=== PATIENT | female | born 1995 | race Caucasian/White ===

== ENCOUNTER 2018-01-07 17:55 | Emergency (ER) | payer MEDICAID ==
[~2018-01-07] VITALS: Ht 167.6 cm; Wt 125.0 kg
[~2018-01-07 17:55] MED LIST: EQUALINE PRENATAL; MOTRIN 600600 MG/TAB PO; PERCOCET 325 MG1 TA2 PO; PROCARDIA XL 3030 MG PO
[2018-01-07 18:02] VITALS: BP 121/59; PULSE 93; TEMP 98
[2018-01-07 19:00] LABS: COLLECTION METHOD CLEAN CATCH
[2018-01-07 19:08] LABS: MUCOUS Present /lpf; PH 5 (5-8); URINE APPEARANCE Hazy; URINE BACTERIA Rare /hpf; URINE BILIRUBIN Negative (NEGATIVE); URINE BLOOD 1+ (NEGATIVE); URINE COLOR Yellow; URINE GLUCOSE Negative (NEGATIVE); URINE KETONE Trace (NEGATIVE); URINE LEUKOCYTE ESTERASE Negative (NEGATIVE); URINE NITRATE Negative (NEGATIVE); URINE PROTEIN(semi-quant) Negative (NEGATIVE); URINE RBC 0-2 /hpf
== END 2018-01-07 19:51 | disposition home or self-care (01) ==
LOC: COL.ER 17:55
PROVIDERS: Nurse Practitioner
DX: R10.31 Right lower quadrant pain (principal); R10.11 Right upper quadrant pain; Z90.49 Acquired absence of other specified parts of digestive tract; Z98.890 Other specified postprocedural states

== ENCOUNTER 2018-04-14 21:34 | Outpatient (CLI) | payer MEDICAID ==
[~2018-04-14] VITALS: Ht 162.6 cm; Wt 131.4 kg
[2018-04-14 22:27] VITALS: BP 134/63; PULSE 85; TEMP 98.5
== END 2018-04-14 22:40 ==
LOC: LDRO 21:34
DX: O36.8130 Decreased fetal movements, third trimester, not applicable or unspecified (principal); Z3A.36 36 weeks gestation of pregnancy

== ENCOUNTER 2018-05-01 05:29 | Inpatient (IN) | payer MEDICAID ==
[~2018-05-01] VITALS: Ht 165.1 cm; Wt 132.3 kg
[2018-05-01] VITALS (19 sets, daily range): BP systolic 95–138; BP diastolic 55–79; PULSE 65–92; TEMP 97.5–98.5
[2018-05-01 06:28] LABS: BASO % 0.4 % (0.0-2.0); EOS # 0.1 (0.0-0.7); EOS % 0.7 % (0-4.0); GRAN # 7.4 (1.4-6.5); GRAN % 71.3 % (42.2-75.2); HEMOGLOBIN 11.9 g/dl (12.5-16.0); LYMPH % 19.2 % (20.0-51.0); MEAN CELL VOLUME 81 fl (80.0-100.0); MEAN CORPUSCULAR HEMOGLOBIN 26 pg (27.0-31.0); MEAN CORPUSCULAR HGB CONC 32 g/dl (33.0-37.0); MONO # 0.8 (0.1-0.6); MONO % 7.8 % (1.7-9.3); PLATELET COUNT 235 K/mm3 (130-400); RED BLOOD COUNT 4.57 M/mm3 (4.10-5.30); REDCELL DISTRIBUTION WIDTH-CV 15.3 % (11.5-14.5)
[2018-05-01 06:29] LABS: HEMATOCRIT 36.8 % (37.0-47.0)
[2018-05-01 09:21] LABS: HEMOGLOBIN 11.2 g/dl (12.5-16.0); MEAN CELL VOLUME 82 fl (80.0-100.0); MEAN CORPUSCULAR HEMOGLOBIN 27 pg (27.0-31.0); MEAN CORPUSCULAR HGB CONC 33 g/dl (33.0-37.0); MEAN PLATELET VOLUME 11.1 fl (7.4-10.4); PLATELET COUNT 214 K/mm3 (130-400); RED BLOOD COUNT 4.22 M/mm3 (4.10-5.30); REDCELL DISTRIBUTION WIDTH-CV 15.3 % (11.5-14.5)
[2018-05-01 09:22] LABS: HEMATOCRIT 34.4 % (37.0-47.0)
[2018-05-01 09:30] LABS: BAND 32 % (0-10); LYMPHOCYTE 14 % (20.0-51.0); NEUTROPHILS 48 % (42.0-75.2); PLATELET ESTIMATE NORMAL (NORMAL)
[2018-05-02 01:20] VITALS: BP 118/53; PULSE 90; TEMP 97.9
[2018-05-02 08:00] VITALS: BP 141/75; PULSE 93; TEMP 98.3
[2018-05-02 16:35] VITALS: BP 125/59; PULSE 88; TEMP 98.2
[2018-05-02 21:30] VITALS: BP 132/73; PULSE 93; TEMP 98.5
[2018-05-03 10:03] VITALS: BP 134/75; PULSE 94; TEMP 97.6
[2018-05-03] MEDS ORDERED: IBU800 M1 PO (10:54)
[2018-05-03] MEDS ORDERED: PERCOCET 325 MG1 TA2 PO (10:54)
== END 2018-05-03 12:05 | disposition home or self-care (01) | DRG 788 ==
LOC: OB 05:29
PROVIDERS: Student in an Organized Health Care Education/Training Program
PROC: 10D00Z1 Extraction of Products of Conception, Low, Open Approach (ICD-10-PCS; principal; 2018-05-01)
DX: O34.211 Maternal care for low transverse scar from previous cesarean delivery (principal); Z3A.39 39 weeks gestation of pregnancy; Z37.0 Single live birth; O99.824 Streptococcus B carrier state complicating childbirth; O99.214 Obesity complicating childbirth; O99.344 Other mental disorders complicating childbirth; F41.9 Anxiety disorder, unspecified
CPT/HCPCS: J0690; J1885; J2270; J2370; J2405; J2590; J7120

== ENCOUNTER 2019-11-05 20:34 | Emergency (ER) | payer BC ==
[~2019-11-05] VITALS: Ht 165.1 cm; Wt 125.0 kg
[~2019-11-05 20:34] MED LIST changes: +IBU800 M1 PO
[2019-11-05] MEDS ORDERED: AMOXICILLIN875 MG PO (21:02)
[2019-11-05 21:28] VITALS: BP 124/67; PULSE 90; TEMP 98.9
== END 2019-11-05 21:28 | disposition home or self-care (01) ==
LOC: COL.ER 20:34
DX: K02.9 Dental caries, unspecified (principal); K04.7 Periapical abscess without sinus; G44.209 Tension-type headache, unspecified, not intractable
CPT/HCPCS: J1885

== ENCOUNTER 2021-10-21 20:53 | Emergency (ER) | payer SELFPAY ==
[~2021-10-21] VITALS: Ht 165.1 cm; Wt 127.3 kg
[~2021-10-21 20:53] MED LIST changes: +AMOXICILLIN875 MG PO
[2021-10-21 21:01] VITALS: TEMP 97.5
[2021-10-21 21:20] LABS: STREP SCREEN NEGATIVE
[2021-10-21] MEDS ORDERED: PREDNISONE20 MG PO (22:48)
[2021-10-21] MEDS ORDERED: CLEOCIN HCL300 MG PO (22:48)
[2021-10-21 23:15] VITALS: BP 124/78; PULSE 80
== END 2021-10-21 23:15 | disposition home or self-care (01) ==
LOC: COL.ER 20:53
PROVIDERS: Nurse Practitioner
DX: J03.90 Acute tonsillitis, unspecified (principal)
CPT/HCPCS: J7512